=== PATIENT | female | born 1950 | race Two or more races ===

== ENCOUNTER 2020-03-21 10:23 | Emergency (ER) | payer OTHER ==
[2020-03-21] MEDS ORDERED: ACETAMINOPHEN 325 MG TABLET PO ONE (10:59)
--- NOTE | 2020-03-21 11:03 | ER Document Report ---
ED Medical Screen (RME) - General Chief Complaint: Fall Stated Complaint: FALL/BACK PAIN Time Seen by Provider: 03/21/20 10:53 Notes: Patient is a 69-year-old Czech-speaking female who presents to the emergency department after a fall down the stairs. She slipped and slid down the stairs. She hit the back of her head. She did not lose consciousness. States that her back hurts more than anything else, but her head hurts a little bit. This happened this morning. Patient was able to squat up, but not able to walk a lot due to the pain. Gxmmmkpi-[id number]-mey is at bed side for translation. Offered [employer] for translation, the family refused. Exam: Tenderness noted to mid lower back and back of head. I have greeted and performed a rapid initial assessment of this patient. A comprehensive ED assessment and evaluation of the patient, analysis of test results and completion of medical decision making process will be conducted by an additional ED providers. - Related Data Allergies/Adverse Reactions: No Known Allergies Allergy (Unverified 03/21/20 10:59) Past Medical History - Social History Chew tobacco use (# tins/day): No Drug Abuse: None Physical Exam - Vital signs Vitals: Temp Pulse Resp BP Pulse Ox 97.4 F 62 18 140/67 H 95 03/21/20 10:03/21/20 10:32 03/21/20 10:32 03/21/20 10:32 03/21/20 10:32 Course - Vital Signs Vital signs: Temp Pulse Resp BP Pulse Ox 97.4 F 62 18 140/67 H 95 03/21/20 10:32 03/21/20 10:32 03/21/20 10:32 03/21/20 10:32 03/21/20 10:32
--- NOTE | 2020-03-21 11:29 | RADIOLOGY REPORT (SQ) ---
EXAM DESCRIPTION: CT HEAD WITHOUT IMAGES COMPLETED DATE/TIME: 03/21/2020 11:17 am REASON FOR STUDY: fall down stairs COMPARISON: None. TECHNIQUE: Axial images acquired through the brain without intravenous contrast. Images reviewed wi th bone, brain and subdural windows. Additional sagittal and coronal reconstructions were generated. Images stored on PACS. All CT scanners at this facility use dose modulation, iterative reconstruction, and/or weight based d osing when appropriate to reduce radiation dose to as low as reasonably achievable (ALARA). [facility]: Dose Right [facility]: CareDose [facility]: Dose Right [facility]: Teradose 4D [facility]: [employer] RADIATION DOSE: CT Rad equipment meets quality standard of care and radiation dose reduction techniq ues were employed. CTDIvol: 53.2 mGy. DLP: 991 mGy-cm. mGy. LIMITATIONS: None. FINDINGS: VENTRICLES: Normal size and contour. CEREBRUM: No masses. No hemorrhage. No midline shift. No evidence for acute infarction. Normal gra y/white matter differentiation. No areas of low density in the white matter. CEREBELLUM: No masses. No hemorrhage. No alteration of density. No evidence for acute infarction. EXTRAAXIAL SPACES: No fluid collections. No masses. ORBITS AND GLOBE: No intra- or extraconal masses. Normal contour of globe without masses. CALVARIUM: No fracture. PARANASAL SINUSES: No fluid or mucosal thickening. SOFT TISSUES: No mass or hematoma. OTHER: No other significant finding. IMPRESSION: NORMAL BRAIN CT WITHOUT CONTRAST. EVIDENCE OF ACUTE STROKE: NO. COMMENT: Quality ID # [id number]: Final reports with documentation of one or more dose reduction techniques (e.g., Automated exposure control, adjustment of the mA and/or kV according to patient size, use of iterative reconstruction technique) TECHNICAL DOCUMENTATION: JOB ID: [id number] 2010 [employer]- All Rights Reserved Reading location - IP/workstation name: [id number]
--- NOTE | 2020-03-21 11:30 | RADIOLOGY REPORT (SQ) ---
EXAM DESCRIPTION: CT CERVICAL SPINE WITHOUT IMAGES COMPLETED DATE/TIME: 03/21/2020 11:17 am REASON FOR STUDY: fall down stairs COMPARISON: None. TECHNIQUE: Axial images acquired through the cervical spine without intravenous contrast. Images re viewed with lung, soft tissue and bone windows. Reconstructed coronal and sagittal MPR images review ed. Images stored on PACS. All CT scanners at this facility use dose modulation, iterative reconstruction, and/or weight based d osing when appropriate to reduce radiation dose to as low as reasonably achievable (ALARA). [facility]: Dose Right [facility]: CareDose [facility]: Dose Right [facility]: Teradose 4D [facility]: [employer] RADIATION DOSE: CT Rad equipment meets quality standard of care and radiation dose reduction techniq ues were employed. CTDIvol: 17.6 mGy. DLP: 303 mGy-cm. mGy. LIMITATIONS: None. FINDINGS: ALIGNMENT: Slight retrolisthesis of C3 on C4. MINERALIZATION: Normal. VERTEBRAL BODIES: No fractures or dislocation. DISCS: Disc space narrowing at C3-4 and C4-5. FACETS, LATERAL MASSES, POSTERIOR ELEMENTS: No fractures. No dislocation. No acute findings. HARDWARE: None in the spine. VISUALIZED RIBS: No fractures. LUNG APICES AND SOFT TISSUES: No significant or acute findings. OTHER: No other significant finding. IMPRESSION: Mild degenerative changes. No acute fracture or dislocation. TECHNICAL DOCUMENTATION: JOB ID: [id number] Quality ID # [id number]: Final reports with documentation of one or more dose reduction techniques (e.g., Au tomated exposure control, adjustment of the mA and/or kV according to patient size, use of iterative reconstruction technique) 2010 [employer]- All Rights Reserved Reading location - IP/workstation name: [email or web address]
--- NOTE | 2020-03-21 11:49 | RADIOLOGY REPORT (SQ) ---
EXAM DESCRIPTION: L SPINE WHOLE IMAGES COMPLETED DATE/TIME: 03/21/2020 11:41 am REASON FOR STUDY: fall down stairs COMPARISON: None. NUMBER OF VIEWS: Five views including obliques. TECHNIQUE: AP, lateral, oblique, and sacral radiographic images acquired of the lumbar spine. LIMITATIONS: None. FINDINGS: MINERALIZATION: Normal. SEGMENTATION: Normal. No transitional anatomy. ALIGNMENT: Normal. VERTEBRAE: Maintained height. No fracture or worrisome bone lesion. DISCS: Mild disc space narrowing at L5-S1. POSTERIOR ELEMENTS: Pedicles and facets are intact. No pars defect or posterior arch defects. HARDWARE: None in the spine. PARASPINAL SOFT TISSUES: Normal. PELVIS: Intact as visualized. No fractures or worrisome bone lesions. SI joints intact. OTHER: No other significant finding. IMPRESSION: Mild disc degenerative disease at L5-S1. No acute findings. TECHNICAL DOCUMENTATION: JOB ID: [id number] 2010 [employer]- All Rights Reserved Reading location - IP/workstation name: [email or web address]
--- NOTE | 2020-03-21 12:43 | ER Document Report ---
ED General - General Chief Complaint: Fall Stated Complaint: FALL/BACK PAIN Time Seen by Provider: 03/21/20 10:53 Notes: Patient is a 69-year-old female with a past medical history of hypertension and irregular heart rhythm who presents to the emergency department the chief complaint of multiple aches and pains after a fall that occurred prior to arrival. Patient's family is at bedside, translates for her at her request. Family reports that she was walking down the steps this morning she is approximately 5 steps from the bottom when she slipped falling backwards onto her buttock striking her head on the steps but the back of her head. The steps are carpeted. She admits no loss of consciousness. States pain primarily located in the lower back and right posterior chest wall. Also admits to some pain in the left foot. Denies any visual disturbances or dizziness. She did not have a syncopal episode per her report. No nausea or vomiting. No chest pain overtly or shortness of breath. No numbness tingling or weakness. - Related Data Allergies/Adverse Reactions: No Known Allergies Allergy (Unverified 03/21/20 10:59) Past Medical History - Social History Smoking Status: Never Smoker Chew tobacco use (# tins/day): No Drug Abuse: None Family History: Reviewed & Not Pertinent Patient has homicidal ideation: No Review of Systems - Review of Systems Notes: As per HPI Physical Exam - Vital signs Vitals: Temp Pulse Resp BP Pulse Ox 97.4 F 62 18 140/67 H 95 03/21/20 10:32 03/21/20 10:32 03/21/20 10:32 03/21/20 10:32 03/21/20 10:32 - General General appearance: Appears well, Alert In distress: None - HEENT Head: Normocephalic, Atraumatic Pupils: PERRL Neck: Other - Restrained in a cervical collar upon exam - Respiratory Respiratory status: No respiratory distress Chest status: Nontender Breath sounds: Normal Chest palpation: Normal - Cardiovascular Rhythm: Regular Heart sounds: Normal auscultation - Abdominal Inspection: Normal Distension: No distension Bowel sounds: Normal Tenderness: Nontender Organomegaly: No organomegaly - Back Notes: Tenderness to the right posterior thorax lower. No step-off, crepitus or deformity. - Extremities Foot: Other - Tenderness and swelling to the lateral edge of the left foot with some dorsal involvement laterally. Full passive range of motion of the left foot. Good capillary refill distally. 2+ DP/PT on the left. No obvious deformities. - Neurological Neuro grossly intact: Yes Cognition: Normal Orientation: AAOx4 Susie Coma Scale Eye Opening: Spontaneous Ferriday Coma Scale Verbal: Oriented Ferriday Coma Scale Motor: Obeys Commands Susie Coma Scale Total: 15 Speech: Normal Cranial nerves: Normal Cerebellar coordination: Normal Motor strength normal: LUE, RUE, LLE, RLE Sensory: Normal - Psychological Associated symptoms: Normal affect, Normal mood - Skin Skin Temperature: Warm Skin Moisture: Dry Skin Color: Normal Course - Re-evaluation Re-evalutation: 03/21/20 14:01 X-rays and CT scans negative for any acute process per radiologist. Patient c- collar was removed, she has full range of motion of the neck without pain. She states her pain is improved with the Tylenol and Toradol. She is stable and appropriate for discharge and outpatient follow-up. We discussed supportive care measures, rest, hydration and [id number]-[id number] pain medicines per label instruction as needed for any pain. Advised they return here or any ER immediately with any new, persistent or worsening symptoms. She and her familial electrical automation engineer verbalized understood and agreed. - Vital Signs Vital signs: Temp Pulse Resp BP Pulse Ox 97.4 F 62 18 140/67 H 95 03/21/20 10:32 03/21/20 10:32 03/21/20 10:32 03/21/20 10:32 03/21/20 10:32 Discharge - Discharge Clinical Impression: Multiple contusions Fall Qualifiers: Encounter type: initial encounter Qualified Code(s): W19.XXXA - Unspecified fall, initial encounter Condition: Stable Disposition: HOME, SELF-CARE Instructions: Contusion ([facility]) Additional Instructions: Follow-up with your regular doctor in 2 to 3 days for reevaluation. Return here or any ER immediately with any new, persistent or worsening symptoms. Print Language: Prydeinig
[2020-03-21] MEDS ORDERED: KETOROLAC TROMETHAMINE 60 MG/2 ML SDV IM ONE (13:24)
--- NOTE | 2020-03-21 13:35 | RADIOLOGY REPORT (SQ) ---
EXAM DESCRIPTION: FOOT LEFT COMPLETE IMAGES COMPLETED DATE/TIME: 03/21/2020 1:23 pm REASON FOR STUDY: pain s/p fall COMPARISON: None. NUMBER OF VIEWS: Three views. TECHNIQUE: AP, lateral and oblique radiographic images acquired of the left foot. LIMITATIONS: None. FINDINGS: MINERALIZATION: Normal. BONES: No acute fracture or dislocation. No worrisome bone lesions. JOINTS: No effusions. SOFT TISSUES: No soft tissue swelling. No foreign body. OTHER: No other significant finding. IMPRESSION: NEGATIVE STUDY OF THE LEFT FOOT. NO RADIOGRAPHIC EVIDENCE OF ACUTE INJURY. TECHNICAL DOCUMENTATION: JOB ID: [id number] 2010 [employer]- All Rights Reserved Reading location - IP/workstation name: [email or web address]
--- NOTE | 2020-03-21 13:37 | RADIOLOGY REPORT (SQ) ---
EXAM DESCRIPTION: RIBS RIGHT W/PA CHEST IMAGES COMPLETED DATE/TIME: 03/21/2020 1:23 pm REASON FOR STUDY: pain s/p fall COMPARISON: None. TECHNIQUE: Frontal view of the chest and additional views of the right ribs acquired. NUMBER OF VIEWS: Four view. LIMITATIONS: None. FINDINGS: FRONTAL CXR: No pneumothorax. No pleural effusion. No atelectasis or infiltrates. RIBS: No displaced rib fractures. No lytic or blastic bony lesions. OTHER: No other significant finding. IMPRESSION: NO PNEUMOTHORAX. NO DISPLACED RIB FRACTURES. COMMENT: SITE OF TRAUMA/COMPLAINT MARKED/STAMP COMPLETED: NO. TECHNICAL DOCUMENTATION: JOB ID: [id number] 2010 [employer]- All Rights Reserved Reading location - IP/workstation name: [email or web address]
[2020-03-21 14:19] VITALS: BP 138/72
== END 2020-03-21 14:19 | disposition home or self-care (01) ==
LOC: ER 10:23
DX: M54.5 Low back pain (principal); M79.89 Other specified soft tissue disorders; M54.2 Cervicalgia; R51 Headache; M79.10 Myalgia, unspecified site; W10.9XXA Fall (on) (from) unspecified stairs and steps, initial encounter; I10 Essential (primary) hypertension
CPT/HCPCS: 99284; 96372; 73630; 72110; 71101; 70450; 72125; J1885